=== PATIENT | female | born 1950 | race Caucasian/White ===

== ENCOUNTER 2017-01-09 19:05 | Emergency (ER) | payer OTHER ==
[~2017-01-09 19:05] MED LIST: ADVAIR100 INH; ANADS PO; CALTRA600D PO; CELEXA10 PO; CELEXA40 MG PO; CLARIT10 PO; COMBIVENT INH; FERROUS SULF325 M1 PO; FESO4 PO; FISH-EPA1000 MG PO; FLEX PO; FLOVENT110 INH; IBU-200200 MG PO; METHOC500B PO; METHOC750B PO; MOBIC15 MG PO; NAP500 PO; PRAVAC PO; PRAVACHOL40 MG PO; PRILO PO; PRILOSEC40 MG PO; PROAIR HFA INH; PROZAC40 MG PO; RANITIDINE300 MG PO; SINGULAIR1 PO; SPIRIVA INH; SPIRIVA RESPIMAT INH; TRAZ50 PO; ZANTAC300 MG PO; ZYRTEC ALLGY10 MG PO; [UNRECOGNIZED DRUG - OTHER]
== END 2017-01-09 19:11 | disposition home or self-care (01) ==
LOC: ER 19:05
DX: J06.9 Acute upper respiratory infection, unspecified (principal); J44.9 Chronic obstructive pulmonary disease, unspecified; I10 Essential (primary) hypertension; Z87.891 Personal history of nicotine dependence; Z88.8 Allergy status to other drugs, medicaments and biological substances; Z79.899 Other long term (current) drug therapy
CPT/HCPCS: 71010; 99283